=== PATIENT | male | born 1960 | race Caucasian/White ===

== ENCOUNTER 2022-07-24 22:40 | Emergency (ER) | payer OTHER ==
[~2022-07-24] VITALS: Ht 188 cm; Wt 100.0 kg
[2022-07-24] MEDS ORDERED: ONDANSETRON HCL 4MG/2ML INJ IV STA (22:56)
[2022-07-24] MEDS ORDERED: KETOROLAC 30MG/ML VIAL IV STA (22:56)
[2022-07-24] MEDS ORDERED: SODIUM CHLORIDE 0.9% 1,000 ML IV ONE (23:00)
[2022-07-24 23:34] LABS: BASOPHILS % 0.2 % (0.0-2.0); EOSINOPHILS % 0.3 % (0.0-5.0); HEMATOCRIT. 44.8 % (42.0-52.0); LYMPHOCYTES % 7.4 % (20.0-50.0); MEAN CORPUSCULAR HEMOGLOBIN 29.4 pg (28.0-32.0); MEAN CORPUSCULAR VOLUME 87.9 fL (80.0-94.0); NEUTROPHILS % 86.1 % (40.0-76.0); PLATELET 249 x1000/uL (130-400)
[2022-07-24 23:41] LABS: CHLORIDE 116 mEq/L (98-107)
[2022-07-24 23:44] LABS: CLARITY URINE CLOUDY (CLEAR); COLOR URINE YELLOW (YELLOW); KETONES URINE 1+ (NEGATIVE); LEUKOCYTE ESTERASE URINE NEGATIVE (NEGATIVE); NITRITE URINE NEGATIVE (NEGATIVE); OCCULT BLOOD URINE 2+ (NEGATIVE); PH URINE 7.5 (4.5-8.0); PROTEIN URINE NEGATIVE (NEGATIVE); SPECIFIC GRAVITY URINE 1.024 (1.005-1.030); UROBILINOGEN URINE 0.2 E.U./dL (0.2-1.0)
[2022-07-25] MEDS ORDERED: TAMS-11 MT (01:28)
[2022-07-25] MEDS ORDERED: IBUP-2029 MT (01:28)
[2022-07-25 01:50] VITALS: BP 133/75
[2022-07-25] MEDS ORDERED: KETOROLAC 15MG/ML VIAL IV ONE (02:00)
== END 2022-07-25 01:55 | disposition home or self-care (01) ==
LOC: ER 22:51
DX: N20.0 Calculus of kidney (principal); E78.00 Pure hypercholesterolemia, unspecified
CPT/HCPCS: 36415; 70450; 74176; 80053; 81003; 83690; 85025; 96361; 96374; 96375; 96376; 99285; J1885; J2405; J7030